=== PATIENT | male | born 1960 | race Caucasian/White ===

== ENCOUNTER 2017-01-15 09:32 | Day surgery (SDC) | payer OTHER ==
[2017-01-14 15:10] VITALS: BMI 31.3
[2017-01-15 10:09] LABS: URINE APPEARANCE CLEAR; URINE BILIRUBIN NEGATIVE (NEGATIVE); URINE BLOOD NEGATIVE (NEGATIVE); URINE COLOR LTYELLOW; URINE GLUCOSE (UA) NEGATIVE (NEGATIVE); URINE KETONE NEGATIVE (NEGATIVE); URINE LEUK ESTERASE NEGATIVE (NEGATIVE); URINE NITRITE NEGATIVE (NEGATIVE); URINE PROTEIN NEGATIVE (NEGATIVE); URINE UROBILINOGEN NEGATIVE E.U./dl (0.2-1.0)
--- NOTE | 2017-01-15 11:00 | HP ---
Satellite [facility] - Chief Complaint Chief Complaint: right knee pain - Past Medical History Allergies/Adverse Reactions: Allergies Allergy/AdvReac Type Severity Reaction Status Date / Time No Known Allergies Allergy Verified 01/15/17 09:53 - Current Medications Current Medications: Home Medications Medication Instructions Recorded Amlodipine Bes/Olmesartan Med 1 each PO DAILY 01/15/17 [Amlodipine-Olmesartan 10-40 mg] Atorvastatin Ca [Lipitor] 40 mg PO HS 01/15/17 Glimepiride 4 mg PO ACBK 01/15/17 Methocarbamol 500 mg PO Q12H PRN 01/15/17 Multivit-Min/FA/Lycopen/Lutein 1 each PO DAILY 01/15/17 [Centrum Silver Men Tablet] Nabumetone [Relafen -] 500 mg PO BID PRN 01/15/17 Oxycodone HCl/Acetaminophen 1 - 2 tab PO Q6H #50 tab MDD 8 01/15/17 [Percocet 5-325 mg Tablet -] Satellite Physical Exam - Physical Examination Vital Signs: Vital Signs Period Temp Pulse Resp BP Sys/Davis Pulse Ox Last 24 Hr 97.2 F 64 18 143/72 99 General Appearance: Well Nourished, Well Developed, Alert & Oriented x3 ENT: Clear Lung: Normal air movement Heart: Regular rate & rhythm Extremities: Other (right knee- + swelling, + ttp, decr rom, nvi) Neurological: Intact, Alert, Oriented Satellite Impression/Plan - Impression/Plan Impression: right knee internal derangement Operative Procedure: right knee arthroscopy Date to be Performed: 01/15/17
[2017-01-15] MEDS ORDERED: MIDAZOLAM HCL 2 MG/2 ML SINGLE DOSE VIAL ONE (11:10)
[2017-01-15] MEDS ORDERED: PROPOFOL 20 ML ONE ×2 (11:10)
[2017-01-15] MEDS ORDERED: LIDOCAINE HCL/PF 2% SDV 5ML VIAL ONE (11:10)
[2017-01-15] MEDS ORDERED: SUCCINYLCHOLINE CHLORIDE 200 MG/10 ML VIAL ONE (11:10)
[2017-01-15] MEDS ORDERED: LIDOCAINE 1%/EPI 1:100000 (50 ML MULTI DOSE VIAL) ONE (11:15)
[2017-01-15] MEDS ORDERED: BUPIVACAINE HCL/PF 0.5% (5MG/ML) 10 ML VIAL ONE (11:15)
[2017-01-15] MEDS ORDERED: DEXAMETHASONE SOD PHOSPHATE 4 MG/1 ML VIAL ONE (11:33)
[2017-01-15] MEDS ORDERED: KETOROLAC TROMETHAMINE 30 MG/1 ML VIAL ONE (11:33)
--- NOTE | 2017-01-15 12:18 | OP ---
Operative Note - Note: Operative Date: 01/15/17 Pre-Operative Diagnosis: internal derangement right knee Operation: arthroscopy right knee with partial medial meniscectomy and chondroplasty of the trochlea Post-Operative Diagnosis: Same as Pre-op Anesthesia: General Estimated Blood Loss (mls): 0 Operative Report Dictated: Yes
[2017-01-15] MEDS ORDERED: ONDANSETRON 4 MG/2 ML VIAL IVPUSH PRN (12:39)
[2017-01-15] MEDS ORDERED: oxyCODONE HCL 5 MG TABLET PO PRN (12:39)
[2017-01-15] MEDS ORDERED: LACTATED RINGERS SOLUTION 1,000 ML IV SCH (12:45)
[2017-01-15 13:26] VITALS: TEMP 97.5
--- NOTE | 2017-01-15 14:07 | OP ---
DATE OF OPERATION: 01/15/2017 PREOPERATIVE DIAGNOSIS: Internal derangement right knee. POSTOPERATIVE DIAGNOSIS: Internal derangement right knee. PROCEDURE: Arthroscopy, partial medial meniscectomy, and chondroplasty of the trochlea. SURGICAL ATTENDING: Arnie Loyola MD ANESTHESIA: General with LMA. CLOSURE: 4-0 nylon. COMPLICATIONS: None. CONDITION: To recovery room in stable condition. DESCRIPTION OF PROCEDURE: The patient was taken to the operating room on January 15, 2017. General anesthesia with LMA was administered by the anesthesiologist. The right lower extremity was prepped and draped in the usual sterile fashion. Superolateral and mediolateral infrapatellar portal sites were infiltrated with 1% Xylocaine with epinephrine. Superolateral port was made with 15 blade as well as blunt trocar. The knee was aspirated and inflated with a cocktail of 10 mL of 1% Xylocaine, 10 mL of 0.5% Marcaine, and 20 mL of arthroscopic saline. Medial and lateral infrapatellar ports were then made with a 15 blade and blunt trocar. The scope was placed in the lateral infrapatellar port up to suprapatellar pouch. The pouch was visualized to be clean. The medial and lateral gutters were visualized to be clean. The undersurface of the patella was found to be intact. The trochlea had a large grade 4 central lesion with the surrounding cartilage being perfectly okay. This area was cleaned of any soft tissue down to the bleeding bone to stimulate cartilage growth. With valgus stress on the knee, the medial compartment was entered, and the medial meniscus was visualized and probed and found to have a complex tear of the posterior horn. This was debrided back to normal, stable meniscal tissue using a meniscal biter and arthroscopic shaver. The medial femoral condyle was run and found to be intact as was the medial tibial plateau. At 90 degrees, the ACL was visualized and probed and found to be intact. In figure-4 position lateral compartment was entered. Lateral meniscus was visualized and probed and found to be intact. Lateral and femoral condyles were run and found to be intact as was the lateral tibial plateau, and it was irrigated with copious amounts of irrigation. The portal was closed using 4-0 nylon. Prior to closure, 20 mL of 0.5% Marcaine was infused into the knee for postoperative analgesia. A sterile pressure dressing was placed over the knee. The patient was awakened from anesthesia and transferred to recovery in stable condition with no complications. Walker [id number]
[2017-01-15 14:20] VITALS: BP 125/74; PULSE 65
--- NOTE | 2017-01-18 12:39 | PATH ---
Surgical Pathology Report Patient Name: RUDY MORTON [facility]. Rec. #: [id number] /Age/Gender: 1960 (Age: 56) / M Account: [id number] Location: [facility] SURGICAL Taken: 01/15/2017 Received: 01/15/2017 Reported: 01/18/2017 Physicians: Arnie Loyola M.D. Specimen(s) Received SHAVINGS RIGHT KNEE Clinical History Tear right knee Final Diagnosis SOFT TISSUE, RIGHT KNEE, ARTHROSCOPIC SHAVINGS: SYNOVIUM AND FIBROCARTILAGE WITH MYXOHYALINE DEGENERATION. Electronically Signed Jorge Davidson M.D. Gross Description Received in formalin, labeled "right knee shavings" is a 4.5 x 3.3 x 0.4 cm aggregate of kaur-yellow soft tissue fragments. A inside sales account representative portion is submitted in one cassette. 01/15/201701/15/2017
== END 2017-01-15 14:22 | disposition home or self-care (01) ==
LOC: JASU-SURG 09:32
PROVIDERS: ATTEND Orthopaedic Surgery
PROC: 0SBC4ZZ Excision of Right Knee Joint, Percutaneous Endoscopic Approach (ICD-10-PCS; 2017-01-15)
PROC: 0SBC4ZZ Excision of Right Knee Joint, Percutaneous Endoscopic Approach (ICD-10-PCS; principal; 2017-01-15 11:30)
DX: M23.91 Unspecified internal derangement of right knee (principal)
CPT/HCPCS: 29881; G0289; 81003; 88304-TC; 94760

== ENCOUNTER 2017-08-24 09:21 | Day surgery (SDC) | payer OTHER ==
[2017-08-20 15:00] VITALS: BMI 29.4
[2017-08-24] MEDS ORDERED: LIDOCAINE 1%/EPI 1:100000 (20 ML MULTI DOSE VIAL) ONE (11:12)
[2017-08-24] MEDS ORDERED: BUPIVACAINE HCL/PF 0.5% (5MG/ML) 10 ML VIAL ONE (11:12)
[2017-08-24] MEDS ORDERED: MIDAZOLAM HCL 2 MG/2 ML SINGLE DOSE VIAL ONE (11:49)
[2017-08-24] MEDS ORDERED: PROPOFOL 20 ML ONE (11:53)
--- NOTE | 2017-08-24 12:03 | HP ---
Satellite [facility] - Chief Complaint Chief Complaint: right knee pain - Past Medical History Allergies/Adverse Reactions: Allergies Allergy/AdvReac Type Severity Reaction Status Date / Time No Known Allergies Allergy Verified 08/24/17 09:56 - Current Medications Current Medications: Home Medications Medication Instructions Recorded Amlodipine Bes/Olmesartan Med 1 each PO DAILY 01/15/17 [Amlodipine-Olmesartan 10-40 mg] Atorvastatin Ca [Lipitor] 40 mg PO HS 01/15/17 Glimepiride 4 mg PO BID 01/15/17 Multivit-Min/FA/Lycopen/Lutein 1 each PO DAILY 01/15/17 [Centrum Silver Men Tablet] Aspirin [ASA -] 81 mg PO DAILY 08/20/17 Metformin HCl 500 mg PO BID 08/20/17 Naproxen Sodium [Aleve] 220 mg PO DAILY PRN 08/24/17 Oxycodone HCl/Acetaminophen 1 - 2 tab PO Q6H #30 tab MDD 8 08/24/17 [Percocet 5-325 mg Tablet -] Satellite Physical Exam - Physical Examination Vital Signs: Vital Signs Period Temp Pulse Resp BP Sys/Davis Pulse Ox Last 24 Hr 97.8 F 68 16 129/74 100 General Appearance: Well Nourished, Well Developed, Alert & Oriented x3 ENT: Clear Lung: Normal air movement Heart: Regular rate & rhythm Extremities: Other (right knee- + swelling, + ttp, decr rom, + mmcurrays, + apleys, nvi MRI + mt) Neurological: Intact, Alert, Oriented Satellite Impression/Plan - Impression/Plan Impression: right knee internal derangement Operative Procedure: right knee arthroscopy Date to be Performed: 08/24/17
[2017-08-24] MEDS ORDERED: ceFAZolin SODIUM 1 GM VIAL ONE ×2 (12:09→12:10)
[2017-08-24] MEDS ORDERED: ONDANSETRON 4 MG/2 ML VIAL ONE (12:16)
[2017-08-24] MEDS ORDERED: DEXAMETHASONE SOD PHOSPHATE 4 MG/1 ML VIAL ONE (12:16)
--- NOTE | 2017-08-24 12:48 | OP ---
Operative Note - Note: Operative Date: 08/24/17 Pre-Operative Diagnosis: internal derangement right knee Operation: arthroscopy right knee and partial MM and chondroplasty trochlea Post-Operative Diagnosis: Same as Pre-op Surgeon: Arnie Loyola Anesthesia: General Estimated Blood Loss (mls): 0 Operative Report Dictated: Yes
--- NOTE | 2017-08-24 13:32 | OP ---
DATE OF OPERATION: 08/24/2017 PREOPERATIVE DIAGNOSIS: Internal derangement, right knee. POSTOPERATIVE DIAGNOSIS: Internal derangement, right knee. PROCEDURE: Arthroscopy, right knee partial medial meniscectomy, and chondroplasty of the trochlea. SURGICAL ATTENDING: Arnie Loyola MD ANESTHESIA: General with LMA. CLOSURE: Nylon 4-0. COMPLICATIONS: None. CONDITION: To recovery room in stable condition. DESCRIPTION OF OPERATIVE PROCEDURE: Patient was taken to the operating room on August 24, 2017. General anesthesia with LMA was administered by the anesthesiologist. The right lower extremity was prepped and draped in the usual sterile fashion. The medial and lateral infrapatellar portal sites were infiltrated with 1% Xylocaine with epinephrine. The portal sites were then made with 15 blade with blunt trocar. The scope was placed into the lateral infrapatellar portal and went up to the suprapatellar pouch. The knee was inflated with a cocktail of 10 mL 1% Xylocaine and 10 mL 0.50% Marcaine and 20 mL of arthroscopic saline. After that cocktail was allowed to sit in the knee for a few minutes, we continued with the procedure. The suprapatellar pouch was visualized to be clean. The medial and lateral gutters were visualized to be clean. The undersurface of the patella was found to be intact. The trochlea had an essential grade 4 lesion that was with some loose articular cartilage, and this was debrided using a shaver, leaving a stable bleeding surface. With valgus stress on the knee, the medial compartment was entered. The medial meniscus was visualized, probed, and found to have a complex horizontal cleavage tear of its posterior horn. This was debrided back to smooth and stable meniscal tissue using a meniscal biter and arthroscopic shaver. The medial femoral condyle was run and found to be intact, as was the medial tibial plateau. At 90 degrees, the ACL was visualized, probed, and found to be intact. In the figure four position, the lateral compartment was entered. Lateral meniscus was visualized, probed, and found to be intact. The lateral femoral condyle was run and found to be intact, as was the lateral tibial plateau. The knee was irrigated with copious amounts of irrigation. The portals were closed with 4-0 nylon. Prior to closure, 20 mL of 0.5% Marcaine was infused through the cannula for postoperative analgesia. A sterile pressure dressing was placed over the knee. Patient was awakened from anesthesia and transferred to recovery room in stable condition. No complications. Estimated blood loss was negligible. Walker [id number]
[2017-08-24 13:45] VITALS: PULSE 68
[2017-08-24 14:14] VITALS: BP 148/79; TEMP 98
== END 2017-08-24 14:30 | disposition home or self-care (01) ==
LOC: FASU 09:21
PROVIDERS: ATTEND Orthopaedic Surgery
PROC: 0SQC4ZZ Repair Right Knee Joint, Percutaneous Endoscopic Approach (ICD-10-PCS; 2017-08-24)
PROC: 0SBC4ZZ Excision of Right Knee Joint, Percutaneous Endoscopic Approach (ICD-10-PCS; principal; 2017-08-24 12:14)
DX: M23.321 Other meniscus derangements, posterior horn of medial meniscus, right knee (principal)
CPT/HCPCS: 29881; G0289; 94760

== ENCOUNTER 2017-12-21 04:45 | Day surgery (SDC) | payer OTHER ==
[2017-11-10 14:11] VITALS: BMI 30.8
[~2017-12-21 04:45] MED LIST: FLU VACCINE QUAD 60 MCG/0.5 ML (MDV 17-18) IM ONE
[2017-12-21 06:35] VITALS: BP 135/72; PULSE 64; TEMP 98.4
[2017-12-21 07:27] LABS: INR 1.08 (0.82-1.09); PROTHROMBIN TIME (PATIENT) 12.2 SEC (9.98-11.88)
[2017-12-21] MEDS ORDERED: THROMBIN (BOVINE) 20,000 UNIT VIAL TP ONE (07:54)
[2017-12-21] MEDS ORDERED: LIDOCAINE 1%/EPI 1:100000 (20 ML MULTI DOSE VIAL) ONE (07:54)
[2017-12-21] MEDS ORDERED: GENTAMICIN SO4 80 MG/2 ML VIAL ONE (07:54)
[2017-12-21] MEDS ORDERED: BUPIVACAINE HCL/PF 0.5% (5MG/ML) 10 ML VIAL ONE (07:55)
== END 2017-12-21 09:13 | disposition home or self-care (01) ==
LOC: JSAMEDAYSX 04:45 → UNDOADMIN 04:45 → JASUSAT 04:45 → UNDODISIN 09:13 → EDSTATUS 14:30
PROVIDERS: ATTEND Neurological Surgery
PROC: 0WJJ4ZZ Inspection of Pelvic Cavity, Percutaneous Endoscopic Approach (ICD-10-PCS; principal; 2017-12-21)
DX: Z53.8 Procedure and treatment not carried out for other reasons (principal)
CPT/HCPCS: 36415; 82962; 84132; 85610; 86850; 86900; 86901

== ENCOUNTER 2017-12-24 06:12 | Inpatient (IN) | payer OTHER ==
[2017-12-23 11:56] VITALS: BMI 31.7
[2017-12-24] MEDS ORDERED: LIDOCAINE 1%/EPI 1:100000 (20 ML MULTI DOSE VIAL) ONE (07:14)
[2017-12-24] MEDS ORDERED: BUPIVACAINE HCL/PF 0.5% (5MG/ML) 10 ML VIAL ONE (07:14)
[2017-12-24] MEDS ORDERED: GENTAMICIN SO4 80 MG/2 ML VIAL ONE (07:14)
[2017-12-24] MEDS ORDERED: THROMBIN (BOVINE) 5,000 UNIT VIAL TP ONE (07:15)
[2017-12-24] MEDS ORDERED: ONDANSETRON 4 MG/2 ML VIAL IVPUSH PRN ×2 (09:08→13:14)
[2017-12-24] MEDS ORDERED: PROMETHAZINE HCL 25 MG/1 ML VIAL IVPB PRN (09:08)
[2017-12-24] MEDS ORDERED: DEXAMETHASONE SOD PHOSPHATE 4 MG/1 ML VIAL IVPUSH PRN (09:08)
[2017-12-24] MEDS ORDERED: LACTATED RINGERS SOLUTION 1,000 ML IV SCH (09:15)
[2017-12-24] MEDS ORDERED: LIDOCAINE HCL/PF 2% SDV 5ML VIAL ONE (09:23)
[2017-12-24] MEDS ORDERED: PROPOFOL 20 ML ONE (09:23)
[2017-12-24] MEDS ORDERED: MIDAZOLAM HCL 2 MG/2 ML SINGLE DOSE VIAL ONE (09:23)
[2017-12-24] MEDS ORDERED: ROCURONIUM BROMIDE 50 MG/5 ML VIAL ONE (09:23)
[2017-12-24] MEDS ORDERED: SODIUM CHLORIDE 0.9% P/F 10 ML VIAL IJ ONE ×2 (10:09→10:11)
[2017-12-24] MEDS ORDERED: ceFAZolin SODIUM 1 GM VIAL ONE (10:09)
[2017-12-24] MEDS ORDERED: ceFAZolin SODIUM 1 GM VIAL IVPB ONE (10:10)
[2017-12-24] MEDS ORDERED: VANCOMYCIN 1,000 MG VIAL (RESTRICTED TO ID ONLY) ONE (10:11)
[2017-12-24] MEDS ORDERED: GLYCOPYRROLATE 0.2 MG/1 ML VIAL ONE ×2 (10:43→12:16)
[2017-12-24] MEDS ORDERED: BACITRACIN 50,000 UNITS VIAL TP ONE (10:43)
[2017-12-24] MEDS ORDERED: TRANEXAMIC ACID 1000 MG/10 ML VIAL ONE (11:34)
[2017-12-24] MEDS ORDERED: HYDROmorphone *PCA* 10MG/50ML DISP.SYRIN PCA SCH (12:00)
[2017-12-24] MEDS ORDERED: NEOSTIGMINE METHYLSULFATE 0.5 MG/ML - 10 ML MDV ONE (12:16)
--- NOTE | 2017-12-24 13:11 | OP ---
Operative Note - Note: Operative Date: 12/24/17 Pre-Operative Diagnosis: cervical stenosis Operation: cervical corpectomy of 4 and 5 with cage and anterior plate placement Surgeon: Garrett Lara Regulation Supervisor: Frida Deluca Anesthesiologist/SPORTS DOCTOR: Jagdish Pineda Anesthesia: General Estimated Blood Loss (mls): 1,000 Drains, Volume Out (mls): 300 (antoine) Fluid Volume Replaced (mls): 2,800 Operative Report Dictated: Yes
--- NOTE | 2017-12-24 13:13 | SURG ---
Surgery Armored Car Driver Note Armored Car Driver: Frida Deluca PA-C Date of Service: 12/24/17 Diagnosis: cervcial stenosis Procedure: cervcial corpectomy of C4 nd C5 ans reconstruction with cage and anterior plate I was present for the entirety of the operative procedure. For further detail, please refer to operative report. Visit type - Case Type Case Type: Scheduled Admission - Emergency Emergency Visit: No - New patient This patient is new to me today: Yes Date on this admission: 12/24/17
[2017-12-24] MEDS ORDERED: ACETAMINOPHEN 325 MG TABLET (FP) PO PRN (13:15)
[2017-12-24] MEDS ORDERED: HYDROmorphone *PCA* 6MG/30ML DISP.SYRIN PCA ONE (13:17)
[2017-12-24] MEDS ORDERED: HYDROmorphone *PCA* 6MG/30ML DISP.SYRIN PCA SCH (15:19)
[2017-12-24] MEDS ORDERED: GLIMEPIRIDE 2 MG TABLET (FP) PO SCH (16:30)
[2017-12-24] MEDS: LACTATED RINGERS SOLUTION 1,000 ML/1,000 ML INFUS.BAG IV SCH (16:42)
[2017-12-24] MEDS: HEPARIN NA (PORCINE) 5,000 UNITS/ML 1ML VIAL SQ SCH ×2 (16:42→21:08)
[2017-12-24] MEDS: CEFAZOLIN 1 GM PUSH 1 GM/10 ML DISP.SYRIN IVPUSH SCH (17:37)
[2017-12-24] MEDS ORDERED: CEFAZOLIN 1 GM/D5W 50 ML IVPB SCH (18:00)
[2017-12-24] MEDS: metFORMIN HCL 500 MG TABLET (FP) PO SCH (19:07)
[2017-12-24] MEDS: ATORVASTATIN CA 40 MG TABLET (FP) PO SCH (21:08)
[2017-12-25] MEDS: LACTATED RINGERS SOLUTION 1,000 ML/1,000 ML INFUS.BAG IV SCH ×2 (00:04→14:25)
[2017-12-25] MEDS: CEFAZOLIN 1 GM PUSH 1 GM/10 ML DISP.SYRIN IVPUSH SCH ×2 (01:28→09:59)
[2017-12-25] MEDS: HEPARIN NA (PORCINE) 5,000 UNITS/ML 1ML VIAL SQ SCH ×3 (05:57→21:39)
[2017-12-25] MEDS: GLIMEPIRIDE 4 MG TABLET (FP) PO SCH ×2 (06:28→17:09)
[2017-12-25] MEDS: metFORMIN HCL 500 MG TABLET (FP) PO SCH ×2 (06:28→17:09)
[2017-12-25] MEDS ORDERED: FLU VACCINE QUAD 60 MCG/0.5 ML (MDV 17-18) IM ONE ×2 (07:14→14:56)
[2017-12-25] MEDS ORDERED: PNEUMOC 13-VAL CONJ-DIP CRM/PF 0.5 ML DISP.SYRIN IM ONE (07:16)
[2017-12-25 07:50] LABS: HEMATOCRIT 34.3 % (35.4-49); HEMOGLOBIN 11.1 GM/dL (11.7-16.9); MCH 26.4 pg (25.7-33.7); MCHC 32.4 g/dl (32.0-35.9); MEAN CELL VOLUME 81.6 fl (80-96); MEAN PLT VOLUME 8.4 fl (7.5-11.1); PLATELET COUNT 308 K/MM3 (134-434); RBC 4.21 M/mm3 (4.00-5.60); RDW 14.5 % (11.9-15.9); WHITE BLOOD COUNT 14.6 K/mm3 (4.0-10.0)
[2017-12-25 08:29] LABS: ANION GAP 9 (8-16); BLOOD UREA NITROGEN 18 mg/dL (7-18); CALCIUM 8.7 mg/dL (8.5-10.1); CHLORIDE 101 mmol/L (98-107); CO2 29 mmol/L (21-32); CREATININE 0.9 mg/dL (0.7-1.3); GLUCOSE,RANDOM 136 mg/dL (74-106); POTASSIUM 4.3 mmol/L (3.5-5.1); SODIUM 139 mmol/L (136-145)
[2017-12-25] MEDS: amLODIPine BESYLATE 10 MG TABLET (FP) PO SCH (09:58)
[2017-12-25] MEDS: VALSARTAN 160 MG TABLET (UD) PO SCH (09:58)
--- NOTE | 2017-12-25 10:29 | CONSULT ---
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: Other (DISCOGENIC DISEASE) Cardio/Vascular: Yes: CAD, HTN, Hyperlipdemia Endocrine: Yes: Diabetes Mellitus - Alcohol/Substance Use Hx Alcohol Use: No - Smoking History Smoking history: Never smoked Home Medications - Allergies Allergies/Adverse Reactions: Allergies Allergy/AdvReac Type Severity Reaction Status Date / Time No Known Allergies Allergy Verified 12/23/17 12:03 - Home Medications Home Medications: Ambulatory Orders Amlodipine Bes/Olmesartan Med [Amlodipine-Olmesartan 10-40 mg] 1 each PO DAILY 01/15/17 Atorvastatin Ca [Lipitor] 40 mg PO DAILY 01/15/17 Glimepiride 4 mg PO BID 01/15/17 Multivit-Min/FA/Lycopen/Lutein [Centrum Silver Men Tablet] 1 each PO DAILY 01/15 Aspirin [ASA -] 81 mg PO DAILY 08/20/17 Metformin HCl 500 mg PO BID 08/20/17 Review of Systems - Review of Systems Cardiovascular: denies: Chest Pain Respiratory: denies: SOB, SOB on Exertion, Wheezing Gastrointestinal: denies: Abdominal Pain Musculoskeletal: reports: Other (NECK PAIN) Physical Exam Vital Signs: Vital Signs Temperature 98.9 F 12/25/17 06:00 Pulse Rate 91 H 12/25/17 06:00 Respiratory Rate 18 12/25/17 06:00 Blood Pressure 165/81 12/25/17 06:00 O2 Sat by Pulse Oximetry (%) 99 12/24/17 21:00 Cardiovascular: Yes: Regular Rate and Rhythm Respiratory: Yes: Regular, CTA Bilaterally Gastrointestinal: Yes: Normal Bowel Sounds, Soft. No: Tenderness Edema: No Neurological: Yes: Alert, Oriented, Other (NECK BRACE) Labs: CBC, BMP 12/25/17 06:20 12/25/17 06:20 Problem List - Problems (1) Herniated cervical disc Assessment/Plan: S/P SURGERY PER NS Code(s): M50.20 - OTHER CERVICAL DISC DISPLACEMENT, UNSP CERVICAL REGION (2) HTN (hypertension) Assessment/Plan: Vital Signs Period Temp Pulse Resp BP Sys/Davis Pulse Ox Last 24 Hr 97.3 F-98.9 F 81-91 09-01 131-165/50-88 99-100 Code(s): I10 - ESSENTIAL (PRIMARY) HYPERTENSION (3) HLD (hyperlipidemia) Code(s): E78.5 - HYPERLIPIDEMIA, UNSPECIFIED (4) Diabetes Assessment/Plan: BGM Code(s): E11.9 - TYPE 2 DIABETES MELLITUS WITHOUT COMPLICATIONS (5) Leukocytosis Assessment/Plan: REPEAT Code(s): D72.829 - ELEVATED WHITE BLOOD CELL COUNT, UNSPECIFIED
[2017-12-25] MEDS: INSULIN SLIDING SCALE (NOVOLOG) 1 VIAL SQ SCH ×3 (12:19→21:52)
[2017-12-25] MEDS ORDERED: oxyCODONE HCL 5 MG TABLET PO PRN (14:28)
[2017-12-25] MEDS ORDERED: ACETAMINOPHEN 325 MG TABLET (FP) PO PRN (14:29)
[2017-12-25 15:24] LABS: BASO % 0.6 % (0-2.0); EOS % 0.1 % (0-4.5); HEMATOCRIT 34.5 % (35.4-49); HEMOGLOBIN 11.5 GM/dL (11.7-16.9); LYMPH % 17.6 % (8-40); MCH 27.4 pg (25.7-33.7); MCHC 33.3 g/dl (32.0-35.9); MEAN CELL VOLUME 82.2 fl (80-96); MEAN PLT VOLUME 8.5 fl (7.5-11.1); MONO % 6.8 % (3.8-10.2); NEUT % 74.9 % (42.8-82.8); PLATELET COUNT 313 K/MM3 (134-434); RDW 14.5 % (11.9-15.9)
--- NOTE | 2017-12-25 16:27 | PN ---
Progress Note (short form) - Note Progress Note: Anesthesia post op note/ RIPSAW OPERATOR note POD#1 S/p cervcial corpectomy of C4 nd C5 and reconstruction with cage and anterior plate under GA. Pat seen and examined. Pain controlled by Po meds. Painscale 0-1 after taking po oxycodon. VSS. No apparent post anesthesia complications. RIPSAW OPERATOR d/c'd by primary team. Signed off.
[2017-12-25] MEDS ORDERED: PT OWN MED DRAWER 7, Y5N ONE (17:06)
[2017-12-25] MEDS: oxyCODONE HCL 5 MG TABLET PO PRN (20:15)
[2017-12-25] MEDS: ATORVASTATIN CA 40 MG TABLET (FP) PO SCH (21:39)
--- NOTE | 2017-12-25 23:59 | PN ---
Progress Note (short form) - Note Progress Note: Patient doing well on postoperative day one after C4 & C5 corpectomies. CT shows good decompression of spinal cord and construct with cage and plate in good position and satisfactory alignment. Patient without speech/swallowing difficulty. AFSHIN output low and drain was discontinued uneventfully. Patient able to ambulate as well as prior to surgery. Patient with good pain control when I saw him. Percocet increased to two tabs Q4 PRN when patient had inadequate pain control with one tab Q4 PRN. Patient is afebrile, however, has elevated WBC. Will observe in hospital for one additional day and discuss case with Dr. Whittaker in AM.
[2017-12-26] MEDS ORDERED: PT OWN MED DRAWER 7, Y5N ONE (06:14)
[2017-12-26] MEDS: HEPARIN NA (PORCINE) 5,000 UNITS/ML 1ML VIAL SQ SCH ×2 (06:49→15:17)
[2017-12-26] MEDS: GLIMEPIRIDE 4 MG TABLET (FP) PO SCH (06:50)
[2017-12-26] MEDS: metFORMIN HCL 500 MG TABLET (FP) PO SCH (06:50)
[2017-12-26] MEDS: INSULIN SLIDING SCALE (NOVOLOG) 1 VIAL SQ SCH ×2 (06:52→11:42)
--- NOTE | 2017-12-26 08:08 | CON.ID ---
Consult Consult Specialty:: infectious disease Referred by:: reina Reason for Consultation:: leukocytosis - History of Present Illness Chief Complaint: none, incisional pain postop History of Present Illness: 57 amarjit old man with htn, cad, DM admitted for cervical spine surgery on 12/24/17. 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year[place] 40 years ago History of Recent Travel: No Home Medications - Allergies Allergies/Adverse Reactions: Allergies Allergy/AdvReac Type Severity Reaction Status Date / Time No Known Allergies Allergy Verified 12/23/17 12:03 - Home Medications Home Medications: Ambulatory Orders Amlodipine Bes/Olmesartan Med [Amlodipine-Olmesartan 10-40 mg] 1 each PO DAILY 01/15/17 Atorvastatin Ca [Lipitor] 40 mg PO DAILY 01/15/17 Glimepiride 4 mg PO BID 01/15/17 Multivit-Min/FA/Lycopen/Lutein [Centrum Silver Men Tablet] 1 each PO DAILY 01/15 Aspirin [ASA -] 81 mg PO DAILY 08/20/17 Metformin HCl 500 mg PO BID 08/20/17 Family Disease History - Family Disease History Family History: Unremarkable Review of Systems - Review of Systems Constitutional: reports: No Symptoms. denies: Chills, Lethargy Eyes: reports: No Symptoms HENT: reports: No Symptoms. denies: Difficult Swallowing, Throat Pain Neck: reports: Other (incision pain- has cervical collar on) Cardiovascular: reports: No Symptoms Respiratory: reports: No Symptoms Gastrointestinal: reports: No Symptoms Genitourinary: reports: No Symptoms Musculoskeletal: reports: No Symptoms Integumentary: reports: No Symptoms Neurological: reports: No Symptoms Physical Exam Vital Signs: Vital Signs Temperature 99.9 F H 12/26/17 07:08 Pulse Rate 83 12/26/17 07:08 Respiratory Rate 20 12/26/17 07:08 Blood Pressure 161/76 12/26/17 07:08 O2 Sat by Pulse Oximetry (%) 97 12/25/17 21:00 Constitutional: Yes: Well Nourished, No Distress, Calm Eyes: Yes: Conjunctiva Clear, EOM Intact HENT: Yes: Atraumatic, Normocephalic. No: Thrush Neck: Yes: Other (cervical collar) Cardiovascular: Yes: Regular Rate and Rhythm Respiratory: Yes: Regular, CTA Bilaterally Gastrointestinal: Yes: Normal Bowel Sounds, Soft ...Rectal Exam: Yes: Deferred Renal/: No: Norton Present Musculoskeletal: Yes: WNL Extremities: Yes: WNL Edema: No Psychiatric: Yes: Alert, Oriented Labs: CBC, BMP 12/25/17 14:30 12/25/17 06:20 Problem List - Problems (1) Leukocytosis Code(s): D72.829 - ELEVATED WHITE BLOOD CELL COUNT, UNSPECIFIED (2) Herniated cervical disc Code(s): M50.20 - OTHER CERVICAL DISC DISPLACEMENT, UNSP CERVICAL REGION (3) Diabetes Code(s): E11.9 - TYPE 2 DIABETES MELLITUS WITHOUT COMPLICATIONS Assessment/Plan well appearing noted to have postop leukocytosis would repeat CBC Neurosurgery to f/u for wound check continue incentive spirometry
[2017-12-26 09:01] LABS: HEMATOCRIT 34.2 % (35.4-49); HEMOGLOBIN 11.1 GM/dL (11.7-16.9); MCH 26.4 pg (25.7-33.7); MCHC 32.4 g/dl (32.0-35.9); MEAN CELL VOLUME 81.5 fl (80-96); MEAN PLT VOLUME 8.1 fl (7.5-11.1); PLATELET COUNT 284 K/MM3 (134-434); RBC 4.19 M/mm3 (4.00-5.60); RDW 14.6 % (11.9-15.9); WHITE BLOOD COUNT 14.7 K/mm3 (4.0-10.0)
[2017-12-26 09:31] LABS: ALBUMIN 3.4 g/dl (3.4-5.0); ANION GAP 7 (8-16); BLOOD UREA NITROGEN 13 mg/dL (7-18); CALCIUM 8.2 mg/dL (8.5-10.1); CHLORIDE 99 mmol/L (98-107); CO2 30 mmol/L (21-32); CREATININE 0.9 mg/dL (0.7-1.3); GLUCOSE,RANDOM 133 mg/dL (74-106); POTASSIUM 4.3 mmol/L (3.5-5.1); SGOT/AST 24 U/L (15-37); SGPT/ALT 31 U/L (12-78); SODIUM 136 mmol/L (136-145)
[2017-12-26 09:34] LABS: ALK PHOS 95 U/L (45-117); BILIRUBIN,TOTAL 0.6 mg/dL (0.2-1.0); TOT PROT 7.2 g/dl (6.4-8.2)
[2017-12-26] MEDS: oxyCODONE HCL 5 MG TABLET PO PRN (09:53)
[2017-12-26] MEDS: amLODIPine BESYLATE 10 MG TABLET (FP) PO SCH (09:53)
[2017-12-26] MEDS: VALSARTAN 160 MG TABLET (UD) PO SCH (09:53)
--- NOTE | 2017-12-26 13:43 | PN ---
Progress Note, Physician Chief Complaint: cervcial corpectomy of C4 nd C5 ans reconstruction with cage and anterior plate History of Present Illness: NAD, feeling better - Current Medication List Current Medications: Active Medications Acetaminophen (Tylenol -) 650 mg PO Q6H PRN PRN Reason: TEMP >100.5 Acetaminophen (Tylenol -) 650 mg PO Q6H PRN PRN Reason: PAIN 1-5 Amlodipine Besylate (Norvasc -) 10 mg PO DAILY [facility] Last Admin: 12/26/17 09:53 Dose: 10 mg Atorvastatin Calcium (Lipitor -) 40 mg PO HS [facility] Last Admin: 12/25/17 21:39 Dose: 40 mg Glimepiride (Amaryl -) 4 mg PO BIDAC [facility] Last Admin: 12/26/17 06:50 Dose: 4 mg Heparin Sodium (Porcine) (Heparin -) 5,000 unit SQ TID [facility] Last Admin: 12/26/17 06:49 Dose: 5,000 unit Insulin Aspart (Novolog Vial Sliding Scale -) 1 vial SQ ACHS [facility] PRN Reason: Protocol Last Admin: 12/26/17 11:42 Dose: Not Given Metformin HCl (Glucophage -) 500 mg PO BIDAC [facility] Last Admin: 12/26/17 06:50 Dose: 500 mg Ondansetron HCl (Zofran Injection) 4 mg IVPUSH Q4H PRN PRN Reason: NAUSEA AND/OR VOMITING Last Admin: 12/24/17 17:36 Dose: 4 mg Ondansetron HCl (Zofran Injection) 4 mg IVPUSH Q6H PRN PRN Reason: NAUSEA AND/OR VOMITING Oxycodone HCl (Roxicodone -) 10 mg PO Q4H PRN PRN Reason: PAIN SCALE 6-10 Last Admin: 12/26/17 09:53 Dose: 10 mg Promethazine HCl (Phenergan Injection -) 12.5 mg IVPB Q6H PRN PRN Reason: NAUSEA AND/OR VOMITING Valsartan (Diovan -) 320 mg PO DAILY [facility] Last Admin: 12/26/17 09:53 Dose: 320 mg - Objective Vital Signs: Vital Signs Temperature 98.4 F 12/26/17 10:00 Pulse Rate 81 12/26/17 10:00 Respiratory Rate 20 12/26/17 10:00 Blood Pressure 168/85 12/26/17 10:00 O2 Sat by Pulse Oximetry (%) 97 12/26/17 09:00 Constitutional: Yes: Well Nourished, No Distress, Calm Cardiovascular: Yes: Regular Rate and Rhythm Respiratory: Yes: Regular Gastrointestinal: Yes: Normal Bowel Sounds, Soft Musculoskeletal: Yes: Back Pain Extremities: Yes: WNL Edema: No Peripheral Pulses WNL: Yes Neurological: Yes: Alert, Oriented Psychiatric: Yes: Alert, Oriented Labs: CBC, BMP 12/26/17 08:50 12/26/17 08:50 Problem List - Problems (1) Herniated cervical disc Assessment/Plan: -seen by Neurosurgery -cervical corpectomies -pain management Code(s): M50.20 - OTHER CERVICAL DISC DISPLACEMENT, UNSP CERVICAL REGION (2) Diabetes Assessment/Plan: -diabetic diet -PO hypoglycemics Code(s): E11.9 - TYPE 2 DIABETES MELLITUS WITHOUT COMPLICATIONS (3) Leukocytosis Assessment/Plan: -likely 2/2 to surgery -received IV abx -seen by ID -now off abx, would monitor Code(s): D72.829 - ELEVATED WHITE BLOOD CELL COUNT, UNSPECIFIED Assessment/Plan see problem list Physical therapy d/c planning
[2017-12-26 16:24] VITALS: BP 162/85; PULSE 88; TEMP 97.6
--- NOTE | 2018-01-08 15:44 | DS ---
Physical Examination Vital Signs: Vital Signs Temperature 97.6 F 12/26/17 15:00 Pulse Rate 88 12/26/17 15:00 Respiratory Rate 20 12/26/17 15:00 Blood Pressure 162/85 12/26/17 15:00 O2 Sat by Pulse Oximetry (%) 97 12/26/17 09:00 Findings/Remarks: See Medical staff PE from 12/26/17 Labs: CBC, BMP 12/26/17 08:50 12/26/17 08:50 Discharge Summary Reason For Visit: CERV SPONDYLOTIC MYELOPATHY/TRAUMATIC DISC HERNIAT Hospital Course: The patient was admitted to the med-surg floor s/p anterior cervical C4/C5 corpectomy with cage and anterior plate placement on 12/24/2017. CT scan was obtained as per protocol and it revealed good decompression of the cervical spine, cage and plate with good position with satisfactory alignment. Post- operatively his pain was managed with IV dilaudid and then transitioned to oral narcotics. His Tony drain was removed POD#1 without complications. He tolerated a regular diet without any difficulty swallowing. His antoine catheter was removed POD#1 and he voided on his own. The patient ambulated without any assist devices. DVT ppx was achieved with early ambulation, SQ heparin and SCDs b/l. The patient remained afebrile during his hospital course and he was treated with IV Vancomycin, ancef and Gentamicin as per protocol. Infectious disease consult was obtained for a leukocytosis. No further treatment was recommended since he was treated with IV antibiotics and was afebile without any complaints. The patient was discharge to home per the medical team with following with Dr. Lara. Condition: Stable - Instructions Diet, Activity, Other Instructions: Follow up with Dr Lara on 01/12/18. Please call the office to make an appointment. Referrals: Suha Whittaker MD [Staff Physician] - Garrett Lara MD, FAANS [Staff Physician] - Disposition: HOME - Home Medications Comprehensive Discharge Medication List: Ambulatory Orders Amlodipine Bes/Olmesartan Med [Amlodipine-Olmesartan 10-40 mg] 1 each PO DAILY 01/15/17 Atorvastatin Ca [Lipitor] 40 mg PO DAILY 01/15/17 Glimepiride 4 mg PO BID 01/15/17 Multivit-Min/FA/Lycopen/Lutein [Centrum Silver Men Tablet] 1 each PO DAILY 01/15 Aspirin [ASA -] 81 mg PO DAILY 08/20/17 Metformin HCl 500 mg PO BID 08/20/17 oxyCODONE HCL [Roxicodone -] 10 mg PO Q6H PRN #20 tablet MDD 4 12/26/17
== END 2017-12-26 16:34 | disposition home or self-care (01) | DRG 321 ==
LOC: JSAMEDAYSX 06:12 → EDSTATUS 12:30 → J8W 17:00
PROVIDERS: ADMIT Neurological Surgery; ATTEND Neurological Surgery
PROC: 00NW0ZZ Release Cervical Spinal Cord, Open Approach (ICD-10-PCS; 2017-12-24)
PROC: 01N10ZZ Release Cervical Nerve, Open Approach (ICD-10-PCS; 2017-12-24)
PROC: 0RG20A0 Fusion of 2 or more Cervical Vertebral Joints with Interbody Fusion Device, Anterior Approach, Anterior Column, Open Approach (ICD-10-PCS; principal; 2017-12-24 08:00)
DX: S13.141A Dislocation of C3/C4 cervical vertebrae, initial encounter (principal); S13.151A Dislocation of C4/C5 cervical vertebrae, initial encounter; S13.161A Dislocation of C5/C6 cervical vertebrae, initial encounter; W18.39XA Other fall on same level, initial encounter; M50.021 Cervical disc disorder at C4-C5 level with myelopathy; M50.022 Cervical disc disorder at C5-C6 level with myelopathy; D18.09 Hemangioma of other sites; M40.40 Postural lordosis, site unspecified; M47.12 Other spondylosis with myelopathy, cervical region; E11.9 Type 2 diabetes mellitus without complications; E66.8 Other obesity; Z68.31 Body mass index [BMI] 31.0-31.9, adult; I25.10 Atherosclerotic heart disease of native coronary artery without angina pectoris; I10 Essential (primary) hypertension; E78.5 Hyperlipidemia, unspecified; D72.829 Elevated white blood cell count, unspecified; Y92.89 Other specified places as the place of occurrence of the external cause
CPT/HCPCS: 36415; 72125-TC; 76000-TC-FY; 80048; 80053; 82962; 85025; 85027; 86850; 86900; 86901; 86922; 90688; 94010; 94760; J1170; J1644